=== PATIENT | male | born 1980 | race African-American/Black ===

== ENCOUNTER 2021-11-21 17:34 | Emergency (ER) | payer OTHER ==
[~2021-11-21] VITALS: Ht 172.7 cm; Wt 90.9 kg
[2021-11-21] MEDS ORDERED: KETOROLAC TROMETHAMINE 30 MG/ML VIAL IM ONE (21:00)
[2021-11-21] MEDS ORDERED: LIDOCAINE 5% TRANSDERMAL PATCH TD ONE (21:00)
[2021-11-21 21:30] VITALS: BP 149/98
== END 2021-11-21 22:05 | disposition home or self-care (01) ==
LOC: EMS 17:34
DX: R07.81 Pleurodynia (principal); F17.210 Nicotine dependence, cigarettes, uncomplicated; Z98.890 Other specified postprocedural states
CPT/HCPCS: 71045; 96372; 99283; J1885